=== PATIENT | male | born 1975 | race Caucasian/White ===

== ENCOUNTER 2020-03-11 08:16 | Emergency (ER) | payer OTHER, SELFPAY ==
--- NOTE | ~2020-03-11 | XR_ITS ---
EXAMINATION: XR chest 2V EXAM DATE: 03/11/2020 09:04 INDICATION: Cough and congestion, symptoms 3 days. TECHNIQUE: Frontal and lateral projections of the chest obtained and reviewed. Comparison is made to prior examination from 04/17/2013. FINDINGS: The lungs are clear. There are no pleural effusions. The cardiomediastinal silhouette is within normal limits. There is no pneumothorax suspected. The bones and soft tissues are unremarkab le. IMPRESSION: No acute cardiopulmonary findings. Reviewed, dictated and finalized at location B. [employer]CH[employer]IC[employer]
--- NOTE | 2020-03-11 08:21 | ED.GENADULT ---
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 Patient states he has had a nonproductive cough, and some shortness of breath feels like he is wheezing. Denies any fevers, body aches or chills. Patient states he has also had a little bit of nasal congestion. Denies any abdominal pain, nausea, vomiting or diarrhea. Patient states he has been taking some [id number] Mucinex for his symptoms. Patient does admit to smoking cigarettes and vaping marijuana. 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 Patient denies being around anybody with Covid that he is aware of and states he has not been diagnosed with Covid in the last 3 months nor has he been tested. Related Data Allergies Allergy/AdvReac Type Severity Reaction Status Date / Time No Known Allergies Allergy Verified 03/11/20 08:51 Review of Systems Review of Systems: Narrative: CONSTITUTIONAL: Denies fever, chills, or sweats. EYES: Denies visual changes, redness, or discharge. ENT: Denies rhinorrhea, positive congestion, denies sore throat, or otalgia. CARDIOVASCULAR: Denies chest pain, palpitations, or edema. RESPIRATORY: Positive cough with dyspnea. GASTROINTESTINAL: Denies abdominal pain, nausea, vomiting, or diarrhea. GENITOURINARY: Denies dysuria or hematuria. SKIN: Denies rash or itching. MUSCULOSKELETAL: Denies back pain, joint pain, or myalgia. NEUROLOGIC: Denies headache, numbness, or weakness. PSYCHIATRIC: Denies anxiety or depression. [facility] Past Medical History Medical History Tobacco dependence Family History Family History Father Hypertension Family history of alcoholism Mother Patient's mother is in good health Sibling Family history of drug dependence Family history of alcoholism Social History Social History (Reviewed 01/14/21 @ 08:23 by CHERYL Capone Social History: Single Years smoked: 28 Smoking status: Current every day smoker Tobacco type: cigarettes Second hand tobacco smoke exposure: Yes Alcohol intake: never Substance use: current Substance use type: marijuana Gender identity (if verbalized by the patient): Male Comments At the time of my signature I agree with nursing past medical history, surgical, social, and family history. There is no relevant family history pertinent to the presenting complaint. Exam Narrative: Exam Narrative: GENERAL: Well-appearing, well-nourished, and in no acute distress. HEAD: Normocephalic, atraumatic. EYES: PERRLA and EOMI. ENT: Nares with erythema and edema noted bilateral, no rhinorrhea or epistaxis. Mucous membranes moist. Posterior pharynx with no erythema, tonsil enlargement, exudates or lesions present. Bilateral TMs are clear no erythema or foreign bodies to the canal. NECK: Supple. No lymphadenopathy CHEST: Patient does have some inspiratory wheezing noted to the left lower lobe on auscultation. The right lower lobe sounds diminished and tight as well as the bilateral upper lobes do sound slightly diminished and tight. No active respiratory distress. HEART: Regular rate and rhythm. No murmur heard. Normal peripheral pulses. ABDOMEN: Soft, nontender, nondistended, normal active bowel sounds. EXTREMITIES: Normal range of motion. No edema. SKIN: Warm, dry, no rash. NEURO: No focal deficits. Alert and oriented x3. Course Reevaluation(s) Reevaluation #1: Reevaluated patient after his breathing treatment had finished. Patient states he is feeling much
[2020-03-11 08:40] VITALS: BP 153/86; PULSE 87; RESP 24; TEMP 36.4; O2SAT 98
[2020-03-11 08:52] VITALS: BP 153/86; PULSE 87; RESP 24; TEMP 36.4; O2SAT 98
[2020-03-11] MEDS: IPRATROPIUM BR 0.02% INH SOLN 0.5 MG/2.5 ML VIAL INHALATION (08:58)
[2020-03-11] MEDS: ALBUTEROL SULFATE NEB 2.5 MG/3 ML INH INHALATION (08:58)
[2020-03-12 18:46] LABS: SARS-CoV-2 RNA PCR Negative
== END 2020-03-11 09:48 | disposition home or self-care (01) ==
PROVIDERS: Emergency Provider Nurse Practitioner Family; PCP Family Medicine
DX: J06.9 Acute upper respiratory infection, unspecified (principal); Z20.822 Contact with and (suspected) exposure to COVID-19; F17.210 Nicotine dependence, cigarettes, uncomplicated; E03.9 Hypothyroidism, unspecified; F31.9 Bipolar disorder, unspecified
CPT/HCPCS: 71046; 94640; 99213; C9803; G0463; U0003; U0005